=== PATIENT | male | born 1945 | race Caucasian/White ===

== ENCOUNTER → 2018-11-01 | Outpatient (CLI) | payer OTHER, BC | LOC: FIMAGING 09:11 | PROVIDERS: ATTEND Physician Assistant Surgical | DX: M51.36 Other intervertebral disc degeneration, lumbar region (principal); M43.16 Spondylolisthesis, lumbar region; M43.06 Spondylolysis, lumbar region; M51.26 Other intervertebral disc displacement, lumbar region ==

== ENCOUNTER 2018-11-13 11:16 | Observation (INO) | payer OTHER, BC ==
[2018-11-13] MEDS ORDERED: ACETAMINOPHEN 500 MG TAB PO ONE (12:01)
[2018-11-13] MEDS ORDERED: ceFAZolin 2 GM/DEXTROSE 100 ML IV ONE (12:01)
[2018-11-13] MEDS ORDERED: GABAPENTIN 300 MG CAP PO ONE (12:01)
[2018-11-13] MEDS ORDERED: LR 1,000 ML IV ONE (12:01)
--- NOTE | 2018-11-13 12:51 | PDHPUP ---
History & Physical Update H&P update statement: This history and physical update is based on an assessment of the patient which was completed after admission or registration (within 24 hours), but prior to the surgery/procedure. H&P update: H&P reviewed & patient examined, no change in patient's condition since H&P completed
[2018-11-13] MEDS ORDERED: THROMBIN (BOVINE) 5,000 UNIT VIAL TP ONE (13:16)
[2018-11-13] MEDS ORDERED: CHLORHEXIDINE GLUC HIBICLENS 118 ML BTL TP ONE (13:16)
[2018-11-13] MEDS ORDERED: BUPIVACAINE 0.25% 30 ML SDV ONE (13:16)
[2018-11-13] MEDS ORDERED: BUPIVACAINE/EPI 0.25% 30 ML SDV ONE (13:17)
[2018-11-13] MEDS ORDERED: BACITRACIN 50,000 UNITS/10 ML SYR IRR ONE ×2 (13:17→16:19)
--- NOTE | 2018-11-13 13:30 | PDANEPAE ---
ANE History of Present Illness lumbar radiculopathy here for L4-5 microdiscectomy and limiflex placement ANE Past Medical History - Cardiovascular History Hx Hypertension: Yes Hx Arrhythmias: No Hx Chest Pain: No Hx Coronary Artery / Peripheral Vascular Disease: Yes Hx CHF / Valvular Disease: Yes Hx Palpitations: No Cardiovascular History Comment: HEART DEFIBRILLATOR/CHF PLACED 2011. 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 WITH WALKING HAS BURNING PAIN. DOWN BACK OF LEG. MISSING TEETH. BRUISES EASILY - Chronic Pain History Chronic Pain: Yes (JESUS ALBERTO LEGS) - Surgical History Prior Surgeries: DEFIBRILLATOR 2012. EJECTION FACTOR BELOW 35. GABG X5 2003. STENTS X9 2004-STENT 2011. RT SHLDR REPAIR 2011. TONSILLECTOMY ANE Review of Systems Review of Systems: - Exercise capacity METS (RN): 3 METS - Pacemaker Pacemaker Type: Permanent Pacer/Defib Pacemaker Theoretical Physicist: CONWEAVER ANE Patient History - Allergies Allergies/Adverse Reactions: No Known Allergies Allergy (Verified 11/08/18 11:55) - Home Medications Home Medications: Aspirin [Aspirin 81mg (*)] 81 mg PO HS 11/08/18 [Last Taken 11/06/18] Carvedilol [Coreg (*)] 25 mg PO BIDMEAL 11/08/18 [Last Taken 11/13/18] Cholecalciferol Vit D3 [Vitamin D3 (*)] 1,000 units PO DAILY 11/08/18 [Last Taken 11/06/18] Clopidogrel Bisulfate [Plavix (*)] 75 mg PO DAILY 11/08/18 [Last Taken 11/06/18] Cyanocobalamin [Vitamin B12 (*)] 2,500 mcg PO DAILY 11/08/18 [Last Taken ] Furosemide [Lasix 40 MG (*)] 40 mg PO DAILY 11/08/18 [Last Taken 11/12/18] Herbals/Supplements -Info Only 1 ea PO DAILY 11/08/18 [Last Taken 11/06/18] Isosorbide Mononitrate [Imdur 30 mg (*)] 60 mg PO DAILY 11/08/18 [Last Taken Unknown] Lisinopril [Zestril 10 mg (*)] 10 mg PO DAILY 11/08/18 [Last Taken 11/12/18] Rosuvastatin Calcium [Crestor 20mg (*)] 20 mg PO HS 11/08/18 [Last Taken ] metFORMIN HCL [Glucophage 500 mg (*)] 1,000 mg PO BIDMEAL 11/08/18 [Last Taken 11/12/18] - NPO status NPO Since - Liquids (Date): 11/13/18 NPO Since - Liquids (Time): 10:15 NPO Since - Solids (Date): 11/12/18 NPO Since - Solids (Time): 17:00 - Anes Hx Anes Hx: no prior problems - Smoking Hx Smoking Status: Never smoked - Alcohol Use Alcohol Use: Occasionally ANE Labs/Vital Signs - Vital Signs Blood Pressure: 138/92 Heart Rate: 75 Respiratory Rate: 20 O2 Sat (%): 20 Height: 175.26 cm Weight: 104.326 kg ANE Physical Exam - Airway Neck exam: FROM Mallampati Score: Class 3 Mouth exam: poor dentition Mouth image: 1 - missing - Pulmonary Pulmonary: no respiratory distress, clear to auscultation - Cardiovascular Cardiovascular: regular rate and rhythym, no murmur, rub, or gallop - ASA Status ASA Status: III ANE Anesthesia Plan Anesthesia Plan: general endotracheal anesthesia Total IV Anesthesia: Yes
[2018-11-13] MEDS ORDERED: MIDAZOLAM 2 MG/2 ML VIAL IVP ONE (13:35)
[2018-11-13] MEDS ORDERED: PROPOFOL 200 MG/20 ML VIAL ONE (14:27)
[2018-11-13] MEDS ORDERED: REMIFENTANIL HCL 1 MG VIAL ONE (14:27)
[2018-11-13] MEDS ORDERED: fentaNYL 100 MCG/2 ML INJ ONE ×2 (14:27→17:30)
[2018-11-13] MEDS ORDERED: PROPOFOL/EMULSION 500 MG/50 ML BOTTLE IV ONE (14:27)
[2018-11-13] MEDS ORDERED: LIDOCAINE 2% 100 MG/5 ML SYR ONE (14:35)
[2018-11-13] MEDS ORDERED: DEXAMETHASONE 4 MG/ML VIAL ONE (15:49)
[2018-11-13] MEDS ORDERED: ONDANSETRON 4 MG/2 ML VIAL ONE (15:49)
[2018-11-13] MEDS ORDERED: PHENYLEPHRINE HCL 100 MCG/ML SYR ONE ×2 (16:36)
[2018-11-13] MEDS ORDERED: MAGNESIUM HYDROXIDE 30 ML UDCUP PO PRN (17:34)
[2018-11-13] MEDS ORDERED: oxyCODONE IR 5 MG TAB PO PRN ×2 (17:34→17:43)
[2018-11-13] MEDS ORDERED: METHOCARBAMOL 750 MG TAB PO PRN (17:34)
[2018-11-13] MEDS ORDERED: ONDANSETRON DISINTEGRATING 4 MG TAB PO PRN (17:34)
[2018-11-13] MEDS ORDERED: BISACODYL 10 MG SUPP PR PRN (17:34)
[2018-11-13] MEDS ORDERED: LACTULOSE 20 GM/30 ML UDCUP PO PRN (17:34)
[2018-11-13] MEDS ORDERED: diphenhydrAMINE 25 MG CAP PO PRN (17:34)
[2018-11-13] MEDS ORDERED: ONDANSETRON 4 MG/2 ML VIAL IVP PRN ×2 (17:34→17:43)
--- NOTE | 2018-11-13 17:40 | SOAPPROG ---
SOAP Progress Note Assessment/Plan: Assessment: 73 yo M sp L4/5 limiflex with L4/5, L5/S1 microdecompression Plan: stable PT/OT VANCE x1 please call with neuro changes 11/13/18 17:39 Subjective: + back pain, no leg pain. Objective: Vital Signs Temp Pulse Resp BP Pulse Ox 36.8 C 75 20 138/92 H 20 L 11/13/18 12:08 11/13/18 13:34 11/13/18 13:34 11/13/18 13:34 11/13/18 13:34 somnolent PERRL, no facial droop FOZIA x 4 + light touch ICD10 Worksheet Patient Problems: Problems Problem Status Onset Lumbar stenosis Acute - ICD10 Problem Qualifiers (1) Lumbar stenosis
[2018-11-13] MEDS ORDERED: fentaNYL 100 MCG/2 ML INJ IVP PRN (17:43)
[2018-11-13] MEDS ORDERED: ACETAMINOPHEN 500 MG TAB PO PRN (17:43)
[2018-11-13] MEDS ORDERED: HYDROmorphONE/DILAUDID 1 MG/ML INJ IVP PRN (17:43)
[2018-11-13] MEDS ORDERED: NALOXONE HCL 0.4 MG/ML INJ IVP PRN (17:43)
[2018-11-13] MEDS ORDERED: NS 1,000 ML IV SCH (17:45)
--- NOTE | 2018-11-13 17:45 | POSTANESTH ---
Post Anesthetic Evaluation Cardiovascular Status: Normal, Stable, Similar to Pre-Op Cond Respiratory Status: Normal, Stable, Requires Airway Assist Level of Consciousness/Mental Status: Moderately Sleepy Pain Control: Adequate, Prn Tx Ordered Nausea/Vomiting Control: Adequate, Prn Tx Ordered Complications Possibly Related to Anesthesia: None Noted
[2018-11-13] MEDS ORDERED: CARVEDILOL 25 MG TAB PO SCH (18:00)
[2018-11-13] MEDS ORDERED: metFORMIN HCL 500 MG TAB PO SCH (18:00)
[2018-11-13] MEDS ORDERED: HYDROCODONE/APAP 5/325 TAB ONE ×2 (19:36→21:14)
[2018-11-13] MEDS: HYDROCODONE/APAP 5/325 TAB PO PRN ×2 (19:38→21:15)
--- NOTE | 2018-11-13 20:55 | GOP ---
[f rep st] OPERATIVE REPORT DATE OF OPERATION: 11/13/2018 SURGEON: Gerard Downey MD SLIDE FASTENER CHAIN ASSEMBLER: Eric Winter PA-C. ANESTHESIA: General endotracheal. PREOPERATIVE DIAGNOSIS: Severe L4-5 and L5-S1 spinal stenosis with intractable right lower extremity radicular pain. POSTOPERATIVE DIAGNOSIS: Severe L4-5 and L5-S1 spinal stenosis with intractable right lower extremit y radicular pain. PROCEDURE PERFORMED: Right-sided L4-5 and L5-S1 posterior hemilaminectomy, medial facetectomy, xin inotomy, and decompression of the central canal with placement of LimiFlex device at L4-5. Use of in traoperative microscopy and fluoroscopy FINDINGS: ESTIMATED BLOOD LOSS: 75 cc. INDICATIONS: The patient is a 73-year-old male with severe multilevel degenerative joint disease and a grade 1 spondylolisthesis at the L4-5 level and spinal stenosis at the lateral recess, impingement at L4-5 and L5-S1. He has failed extensive conservative care and presents now for surgical decompre ssion at the L4-5 and L5-S1 levels with placement of LimiFlex device at the L4-5 level with the spond ylolisthesis. DESCRIPTION OF PROCEDURE: After informed consent was obtained, the patient was taken to the operatin g room and placed in the prone position. The lumbosacral area was prepped and draped in sterile fash ion. After fluoroscopic localization of the correct levels, the subcutaneous and intramuscular tissu es were infiltrated with local anesthesia. A midline linear incision was then created over the L4 to S1 spinous processes. This was carried down to the fascial layer, which was then incised using mono polar electrocautery and carried to the subcostal plane along the spinous processes and lamina bilate rally. Intraoperative fluoroscopy was again utilized to verify the correct levels. Following this, right-sided minimally invasive posterior hemilaminectomy defects were created using the [employer] drill system with a matchstick fluted bur and Kerrison rongeurs at the L4-5 and L5-S1 levels. Of note, th e patient was very obese and the depth of the incision was much greater than normal, as well as the b leeding due to venous back up due to the increased abdominal pressures. This led to a much more time consuming procedure. Eventually, we did achieve an excellent decompression of the central canal lat eral recess and foramen at both levels. But there was a medial facetectomy required at both levels i n order to adequately decompress the lateral recess. Following this, a linear flex device was placed in the standard fashion at the L4-5 level under fluoroscopic image guidance. Following biplanar flu oroscopic verification of good positioning, a drain was placed. The subcutaneous and intramuscular t issues were re-infiltrated with local anesthesia and the wound was closed in a layered fashion using interrupted Vicryl sutures, followed by Steri-Strips on the skin. COMPLICATIONS: None. DISPOSITION: The patient is currently in the process of being repositioned for extubation. /[id number]/MODL
[2018-11-13] MEDS ORDERED: SENNOSIDES/DOCUSATE SODIUM TAB PO SCH (21:00)
[2018-11-13] MEDS ORDERED: FAMOTIDINE 20 MG TAB PO SCH (21:00)
[2018-11-13] MEDS ORDERED: ROSUVASTATIN CALCIUM 20 MG TAB PO SCH (21:00)
[2018-11-13 21:04] VITALS: BP 139/82
[2018-11-13] MEDS ORDERED: ACETAMINOPHEN 500 MG TAB PO SCH (22:00)
[2018-11-13] MEDS ORDERED: POLYETHYLENE GLYCOL 3350 17 GM PKT PO SCH (22:00)
[2018-11-13] MEDS ORDERED: ceFAZolin 2 GM/DEXTROSE 100 ML IV SCH (23:00)
[2018-11-14] MEDS ORDERED: ISOSORBIDE MONONITRATE 30 MG TAB.SR PO SCH (09:00)
[2018-11-14] MEDS ORDERED: LISINOPRIL 10 MG TAB PO SCH (09:00)
[2018-11-14] MEDS ORDERED: FUROSEMIDE 40 MG TAB PO SCH (09:00)
[2018-11-14] MEDS ORDERED: ENOXAPARIN 40 MG/0.4 ML SYR SC SCH (09:00)
== END 2018-11-13 21:20 | disposition home or self-care (01) ==
LOC: F3N 11:16
PROVIDERS: ADMIT Neurological Surgery; ATTEND Neurological Surgery
PROC: BR191ZZ Fluoroscopy of Lumbar Spine using Low Osmolar Contrast (ICD-10-PCS; principal; 2018-11-13 14:00)
PROC: 4A10X4G Monitoring of Central Nervous Electrical Activity, Intraoperative, External Approach (ICD-10-PCS; principal; 2018-11-13 14:00)
PROC: 8E0WXBG Computer Assisted Procedure of Trunk Region, With Computerized Tomography (ICD-10-PCS; principal; 2018-11-13 14:00)
PROC: 00NY0ZZ Release Lumbar Spinal Cord, Open Approach (ICD-10-PCS; principal; 2018-11-13 14:00)
PROC: 0SU Lower Joints, Supplement (ICD-10-PCS; principal; 2018-11-13 14:00)
DX: M48.061 Spinal stenosis, lumbar region without neurogenic claudication (principal); M48.07 Spinal stenosis, lumbosacral region; M43.16 Spondylolisthesis, lumbar region; M51.16 Intervertebral disc disorders with radiculopathy, lumbar region; M51.17 Intervertebral disc disorders with radiculopathy, lumbosacral region; M51.26 Other intervertebral disc displacement, lumbar region; I11.0 Hypertensive heart disease with heart failure; E11.9 Type 2 diabetes mellitus without complications; I50.9 Heart failure, unspecified; G47.33 Obstructive sleep apnea (adult) (pediatric); Z86.73 Personal history of transient ischemic attack (TIA), and cerebral infarction without residual deficits; Z95.810 Presence of automatic (implantable) cardiac defibrillator; Z95.5 Presence of coronary angioplasty implant and graft; Z95.1 Presence of aortocoronary bypass graft
CPT/HCPCS: 22867; 76000; C1713; J0690; J1100; J2001; J2250; J2370; J2405; J2704; J3010

== ENCOUNTER → 2018-12-19 | Outpatient (CLI) | payer OTHER, BC | LOC: FIMAGING 12:01 ==